=== PATIENT | female | born 1945 | race Caucasian/White ===

== ENCOUNTER 2024-01-06 16:16 | Emergency (ER) | payer MEDICARE, SELFPAY ==
[2024-01-06] VITALS (8 sets, daily range): BP systolic 131–180; BP diastolic 52–75; PULSE 62–85; RESP 15–18; TEMP 36.7–36.8; O2SAT 97–99; BMI 30.3
--- NOTE | 2024-01-06 17:24 | ECG_ITS ---
Test Reason : SOB Blood Pressure : / mmHG Vent. Rate : 067 BPM Atrial Rate : 067 BPM P-R Int : 148 ms QRS Dur : 074 ms QT Int : 386 ms P-R-T Axes : -12 037 032 degrees QTc Int : 407 ms Normal sinus rhythm Normal ECG No previous ECGs available Referred By: Generic ED Physician Electronically Signed By:EFREN GALLEGOS
[2024-01-06] MEDS: Meclizine HCl 25 MG TABLET 50 MG PO (18:11)
--- NOTE | 2024-01-06 18:17 | ED.GENADULT ---
HPI - General Adult General Chief complaint: Dizziness Stated complaint: DIZZINESS, DIARRHEA Time Seen by Provider: 01/06/24 17:38 Source: patient, family (daughter) and RN notes reviewed Mode of arrival: ambulatory Limitations: no limitations History of Present Illness ED Provider: Jay NETTLES narrative: 78-year-old female with history of hypertension, hyperlipidemia presents for evaluation of intermittent dizziness with lightheadedness for 1 week Patient reports that she went to urgent care and was referred to [facility] emergency department but left without being seen a couple days ago. She followed up with her PCP on Monday and her amlodipine was discontinued The patient reports that her symptoms persist. She denies any headaches, fevers, chills, respiratory symptoms pain Denies any chest pain, shortness of breath No other complaints or concerns at this time Patient states that when her symptoms very 1st started she describes the symptoms as ?room spinning. ? Related Data Allergies Allergy/AdvReac Type Severity Reaction Status Date / Time No Known Allergies Allergy Verified 01/06/24 16:54 Review of Systems Constitutional: Constitutional: Denies body ache(s), Reports chills, Denies fever(s), Denies frequent falls and Denies headache(s) Eyes: Eyes: Denies blurry vision ENT: Reports vertigo, Reports dizziness and Denies headache(s) Cardiovascular: Cardiovascular: Denies chest pain and Denies dyspnea Respiratory: Respiratory: Denies cough and Denies dyspnea Gastrointestinal: Gastrointestinal: Denies abdominal pain, Denies nausea and Denies vomiting Musculoskeletal: Musculoskeletal: Denies back pain Integumentary/Breasts: Skin/Breast: Denies rash Neurologic: Reports vertigo, Reports dizziness, Denies frequent falls and Denies headache(s) Psychiatric: Psychiatric: Denies anxiety PMFSH Social History Social History Smoked in Last 30 Days: No Use of substances other than those prescribed or required for medical reasons: No Advance Directives: No Advance Directives Information Provided: Yes Physical Exam ED Vital Signs: Vital Signs - 24 hr 01/06/24 16:50 01/06/24 17:16 01/06/24 17:18 Temperature 98.3 F Pulse Rate 70 68 74 Respiratory Rate 18 Blood Pressure 155/55 H 154/71 H 150/68 H Pulse Oximetry 99 Oxygen Delivery Method Room Air 01/06/24 17:20 01/06/24 18:49 01/06/24 21:12 Temperature 98.1 F Pulse Rate 85 62 84 Respiratory Rate 15 15 Blood Pressure 153/75 H 139/52 L 147/72 H Pulse Oximetry 97 99 Oxygen Delivery Method Room Air Room Air BMI result Body Mass Index 30.3 Const General: healthy appearing, comfortable, no acute distress, alert and awake Nutritional Appearance: well nourished Orientation/consciousness: patient oriented x3 HENMT Head: Yes normocephalic and Yes atraumatic Ears: TM's normal bilaterally and EAC's normal Eyes Eyelids: Yes eyelids normal Conjunctivae: conjunctivae normal Sclerae: sclerae normal Corneas: corneas normal Pupils: Equal, round and reactive pupils present EOM: EOMs intact bilaterally Neck Neck: Yes full ROM Resp Effort & Inspection: normal respiratory effort, able to speak in complete sentences, no audible wheezes and not labored Auscultation: clear to auscultation bilaterally Cardio Rate: regular rate Rhythm: regular rhythm GI Inspection: No distended Palpation (GI): Soft to palpation, not firm, nontender, no guarding and not rigid Skin General skin exam: no rashes or lesions noted and elasticity normal Neuro General: patient oriented x3 Cranial nerves: Yes CN's II-XII intact bilaterally, Yes Equal, round and reactive pupils present and Yes Bilaterally intact EOM present Cognition (Neuro): normal cognition Gait exam (Neuro): Normal gait present and not ataxic Motor exam (neuro): 5/5 motor strength present throughout Coordination: [id number] test normal Extrem Other: Moving all extremities well without any obvious deformities Course Reevaluation(s) Reevaluation #1: The patient is currently asymptomatic, she improved with fluids and meclizine. I did repeat her sodium which improved from 127 to 130. The patient is comfortable with discharge at this time, she was close PCP follow-up. She was encouraged to decreased free water intake, I advised her to drink Gatorade or other electrolyte beverage but again, cut back on free water. She is not on any diuretics. She was given return precautions Time: 22:03 Medications Administered Discontinued Medications Generic Name Dose Route Start Last Admin Trade Name Freq PRN Reason Stop Dose Admin Sodium Chloride 500 mls @ 999 mls/hr 01/06/24 19:15 01/06/24 20:23 Ns IV 01/06/24 19:45 Infused .Q31M FEMI Infusion Meclizine HCl 50 mg 01/06/24 17:56 01/06/24 18:11 Meclizine Hcl 25 Mg Tablet PO 01/06/24 17:57 50 mg ONCE ONE Administration Medical Decision Making Medical Decision Making [facility] Narrative: 78-year-old female presents for evaluation of intermittent dizziness. She has no focal neuro deficits, plan for orthostatics, EKG, basic labs. Her history is consistent with vertigo, less likely posterior stroke as her symptoms started a week ago and she has no focal neuro deficits. We will treat with meclizine in the meantime pending remainder of workup Differential Diagnosis Differential Diagnoses: The differential diagnosis associated with the presentation includes BPV Posterior stroke less likely Orthostasis Hyponatremia Dizziness Admission/Observation Consideration of admission/observation: Escalation of care including admission/observation considered Admission was consider due to hyponatremia, but the patient's sodium improved and she is asymptomatic Lab Data [facility] Lab Attestation statement: I reviewed the patient's lab results. No leukocytosis, the patient has a mild normocytic anemia. Platelet count within normal limits. Electrolytes are significant for a hyponatremia to 127 no other significant electrolyte abnormalities. Renal function within normal limits. The patient is not on any diuretics 01/06/24 18:23 01/06/24 21:34 Labs: Lab Results 01/06/24 01/06/24 01/06/24 Range/Units 18:23 18:49 21:34 WBC 8.7 (4.8-10.8) X10*3/uL RBC 3.31 L (4.20-5.50) X10*6/uL Hgb 10.4 L (12.0-16.0) g/dl Hct 29.1 L (37.0-47.0) % MCV 87.9 (80.0-98.0) fL MCH 31.4 (27.0-33.0) pg MCHC 35.7 H (31.0-35.0) g/dl RDW 12.4 (11.0-16.0) % Plt Count 277 (160-400) X10*3/uL MPV 8.2 L (9.4-12.3) fL Immature Gran % (Auto) 0.3 (0.0-0.4) % Neut % (Auto) 72.9 (45-73) % Lymph % (Auto) 18.9 L (20-40) % [place] % (Auto) 7.1 (2-11) % Eos % (Auto) 0.5 (0-4) % Baso % (Auto) 0.3 (0-2) % Lymph # (Auto) 1.7 (1.2-4.9) X10*3/uL [place] # (Auto) 0.6 (0.1-1.2) X10*3/uL Eos # (Auto) 0.0 (0.0-0.4) X10*3/uL Baso # (Auto) 0.0 (0.0-0.2) X10*3/uL Abs Immat Gran (auto) 0.03 (0.00-0.03) X10*3/uL Absolute Neuts (auto) 6.3 (2.0-8.3) x10*3/uL Absolute Nucleated RBC 0.000 (0.0-0.012) X10*3/uL Nucleated RBC % (auto) 0.0 (0.0-0.2) /100WBC PT 12.9 H (10.9-12.4) SEC INR 1.1 (0.9-1.1) Sodium 127 L 130 L (135-145) mmol/L Potassium 4.0 3.9 (3.3-5.1) mmol/L Chloride 96 99 (96-108) mmol/L Carbon Dioxide 21 L 20 L (22-29) mmol/L Anion Gap 14 15 (12-20) BUN 14 13 (9-16) mg/dL Creatinine 0.75 0.74 (0.5-1.4) mg/dL Estim Creat Clear Calc 62.0 62.8 Estimated GFR > 60 > 60 Random Glucose 96 93 (60-115) mg/dL Calcium 9.4 9.1 (8.4-10.2) mg/dL Magnesium 2.1 (1.6-2.6) mg/dL Total Bilirubin 0.3 (0.0-1.0) mg/dL AST 17 (5-31) U/L ALT 11 (0-31) U/L Alkaline Phosphatase 49 (39-117) U/L Troponin I High Sens 3.7 (<3.5-17.0) ng/L Total Protein 7.3 (6.5-8.0) g/dL Albumin 4.3 (3.5-5.0) g/dL Urine Color Yellow Urine Appearance Clear Urine pH 7.0 (5.0-9.0) Ur Specific [place] <= 1.005 (1.005-1.025) Urine Protein Negative (Neg-Trace) mg/dL Urine Glucose (UA) Negative (Negative) mg/dL Urine Ketones Negative (Negative) mg/dL Urine Blood Negative (Negative) Urine Nitrite Negative (Negative) Ur Leukocyte Esterase Negative (Negative) Urine RBC 0-2 (0-2) /HPF Urine WBC 0-5 (0-5) /HPF Ur Squamous Epith Cells 0-2 (0-2) /HPF Urine Bacteria None Seen (None Seen) Hyaline Casts 0-2 (0-2) /LPF Independent Interpretation I performed an independent interpretation of an: EKG (Rhythm with a rate of [address] segment changes) Discharge Plan Discharge Clinical Impression: Dizziness, Vertigo, Acute hyponatremia Patient Disposition: Home, Self-Care Instructions: Liquids and Hydration for Athletes (ED), Hyponatremia (ED), Vertigo (ED) Print Language: [place] Island[place]
[2024-01-06 18:31] LABS: MANUAL DIFF FLAG NO
[2024-01-06 18:34] LABS: Basophils Percent Auto 0.3 % (0-2); Eosinophils Percent Auto 0.5 % (0-4); Hematocrit 29.1 % (37.0-47.0); Hemoglobin 10.4 g/dl (12.0-16.0); Imm Gran Abs Auto 0.03 X10*3/uL (0.00-0.03); Imm Gran Pct Auto 0.3 % (0.0-0.4); Lymphocytes Absolute Auto 1.7 X10*3/uL (1.2-4.9); Lymphocytes Percent Auto 18.9 % (20-40); Mean Corpuscular HGB Conc 35.7 g/dl (31.0-35.0); Mean Corpuscular Hemoglobin 31.4 pg (27.0-33.0); Mean Corpuscular Volume 87.9 fL (80.0-98.0); Mean Platelet Volume 8.2 fL (9.4-12.3); Monocytes Absolute Auto 0.6 X10*3/uL (0.1-1.2); Monocytes Percent Auto 7.1 % (2-11); Neutrophils Absolute Auto 6.3 x10*3/uL (2.0-8.3); Neutrophils Percent Auto 72.9 % (45-73); Platelet Count 277 X10*3/uL (160-400); Red Blood Count 3.31 X10*6/uL (4.20-5.50); Red Cell Distribution Width 12.4 % (11.0-16.0); White Blood Count 8.7 X10*3/uL (4.8-10.8)
[2024-01-06 18:40] LABS: INTERNATIONAL NORM RATIO 1.1 (0.9-1.1); Prothrombin Time 12.9 SEC (10.9-12.4)
[2024-01-06 18:49] LABS: Alanine Aminotransferase 11 U/L (0-31); Albumin Level 4.3 g/dL (3.5-5.0); Alkaline Phosphatase 49 U/L (39-117); Anion Gap 14 (12-20); Aspartate Amino Transferase 17 U/L (5-31); Bilirubin Total 0.3 mg/dL (0.0-1.0); Blood Urea Nitrogen 14 mg/dL (9-16); Calcium 9.4 mg/dL (8.4-10.2); Carbon Dioxide 21 mmol/L (22-29); Chloride 96 mmol/L (96-108); Estimated Glomerular Filt Rate > 60; Glucose Random 96 mg/dL (60-115); Magnesium 2.1 mg/dL (1.6-2.6); Sodium 127 mmol/L (135-145); Total Protein 7.3 g/dL (6.5-8.0)
--- NOTE | 2024-01-06 18:55 | PC.NURSE ---
report from Phuong CALLAWAY, aaume care of pt at this time
[2024-01-06 18:56] LABS: Troponin-I High Sensitivity 3.7 ng/L (<3.5-17.0)
[2024-01-06 19:14] LABS: Appearance Urine Clear; Color Urine Yellow; Glucose Urine UA Negative (Negative); Leukocyte Esterase Urine Negative (Negative); Nitrite Urine Negative (Negative); Specific Gravity - Urine <= 1.005 (1.005-1.025); Urine Blood Negative (Negative); Urine Ketones Negative (Negative); Urine Protein Negative (Neg-Trace)
[2024-01-06 19:19] LABS: Bacteria Urine None Seen (None Seen); Hyaline Casts Urine 0-2 /LPF (0-2); RBC Urine 0-2 /HPF (0-2); Squamous Epithelial Cell Urine 0-2 /HPF (0-2); WBC Urine 0-5 /HPF (0-5)
[2024-01-06] MEDS: 0.9 % Sodium Chloride 500 ML 999 ML IV (19:47)
[2024-01-06 21:57] LABS: Anion Gap 15 (12-20); Blood Urea Nitrogen 13 mg/dL (9-16); Calcium 9.1 mg/dL (8.4-10.2); Carbon Dioxide 20 mmol/L (22-29); Chloride 99 mmol/L (96-108); Creatinine Clr Calc Pharmacy 62.8; Estimated Glomerular Filt Rate > 60; Glucose Random 93 mg/dL (60-115); Potassium 3.9 mmol/L (3.3-5.1); Sodium 130 mmol/L (135-145)
== END 2024-01-06 22:35 | disposition home or self-care (01) ==
PROVIDERS: Physician Assistant; Emergency Provider Emergency Medicine; PCP Nurse Practitioner Primary Care
DX: R42 Dizziness and giddiness (principal); E87.1 Hypo-osmolality and hyponatremia; R06.02 Shortness of breath; I10 Essential (primary) hypertension; E78.5 Hyperlipidemia, unspecified; D64.9 Anemia, unspecified
CPT/HCPCS: 36415; 80048; 80053; 81001; 83735; 84484; 85025; 85610; 93005; 96360; 99285

== ENCOUNTER → 2024-01-06 17:24 | Outpatient (BNV) | payer MEDICARE, SELFPAY | PROVIDERS: Emergency Provider Emergency Medicine; PCP Nurse Practitioner Primary Care; Visit Provider Internal Medicine | DX: R06.02 Shortness of breath (principal) | CPT/HCPCS: 93010 ==

== ENCOUNTER 2024-02-15 13:03 | Emergency (ER) | payer MEDICARE, SELFPAY ==
--- NOTE | 2024-02-15 | ECG_ITS ---
Test Reason : DIZZINESS Blood Pressure : / mmHG Vent. Rate : 064 BPM Atrial Rate : 064 BPM P-R Int : 152 ms QRS Dur : 084 ms QT Int : 420 ms P-R-T Axes : -16 014 026 degrees QTc Int : 433 ms Normal sinus rhythm Normal ECG When compared with ECG of 06-JAN-2024 17:34, No significant change was found Referred By: Generic ED Physician Electronically Signed By:EFREN GALLEGOS
--- NOTE | ~2024-02-15 | CT_ITS ---
EXAMINATION: CT HEAD WITHOUT CONTRAST CLINICAL INFORMATION: Lightheadedness. Dizziness. Evaluate for stroke. COMPARISON: None available. TECHNIQUE: Contiguous axial imaging was performed from the skull base to vertex without intravenous administration of contrast. This CT examination was performed using dose optimization techniques as appropriate, variously including the following: *Automated exposure control *Adjustment of mA and/or kV according to patient size (this includes techniques or standardized protocols for targeted exams where dose is matched to indication/reason for exam; i.e. extremities or head) *Use of iterative reconstruction technique DLP: 542 mGy-cm FINDINGS: The ventricles and sulci are enlarged consistent with diffuse atrophy. No visualized masses or midline shift are seen. There is no intra-axial or extra-axial hemorrhage. There are no fluid collections. Decreased attenuation is seen in the periventricular white matter compatible with chronic small vessel ischemic disease. The harley-white discrimination is preserved. Mucoperiosteal thickening of the left frontal and sphenoid sinuses as well as the left ethmoid air cells. Otherwise, the included paranasal sinuses and mastoid air cells are well aerated. The calvarium is intact. CT/CT head/brain wo IV con IMPRESSION: No intracranial hemorrhage or mass effect. Generalized atrophy and chronic small vessel white matter ischemic changes. Electronically signed by: Ernie Yepez MD 02/15/2024 03:32 PM HENNA
[2024-02-15 13:07] VITALS: BP 153/76; BP 158/54; PULSE 70; PULSE 86; RESP 16; TEMP 36.7; O2SAT 99; BMI 25.7
--- NOTE | 2024-02-15 13:30 | PC.NURSE ---
biba from home c/o dizziness/lightheadedness x 1 week. recently finished paxlovid yesterday - tested negative for covid this am. pt also verbalizing nausea/nonbloody diarrhea w/o relief from pepto x 1 week. denies abd pain/any episodes of vomiting. reports chills. currently afebrile. upon ED arrival - a&ox4. vss and up to date. nsr on the environmental monitoring specialist. labs obtained/sent. ekg performed by tech. pt on RA w/o difficulty. no sob/wob noted. respirations even/unlabored. lung sounds CTA. plan of care ongoing. call armstrong placed within reach.
[2024-02-15 13:32] LABS: Basophils Percent Auto 0.2 % (0-2); Eosinophils Percent Auto 0.2 % (0-4); Hematocrit 32.2 % (37.0-47.0); Hemoglobin 11.4 g/dl (12.0-16.0); Imm Gran Abs Auto 0.01 X10*3/uL (0.00-0.03); Imm Gran Pct Auto 0.2 % (0.0-0.4); Lymphocytes Absolute Auto 1.1 X10*3/uL (1.2-4.9); Lymphocytes Percent Auto 21.7 % (20-40); MANUAL DIFF FLAG NO; Mean Corpuscular HGB Conc 35.4 g/dl (31.0-35.0); Mean Corpuscular Hemoglobin 30.6 pg (27.0-33.0); Mean Corpuscular Volume 86.6 fL (80.0-98.0); Mean Platelet Volume 8.3 fL (9.4-12.3); Monocytes Absolute Auto 0.5 X10*3/uL (0.1-1.2); Monocytes Percent Auto 9.3 % (2-11); Neutrophils Absolute Auto 3.4 x10*3/uL (2.0-8.3); Neutrophils Percent Auto 68.4 % (45-73); Platelet Count 319 X10*3/uL (160-400); Red Blood Count 3.72 X10*6/uL (4.20-5.50); Red Cell Distribution Width 13.1 % (11.0-16.0); White Blood Count 4.9 X10*3/uL (4.8-10.8)
--- NOTE | 2024-02-15 13:34 | ED_ITS ---
HPI - Dizziness General Chief Complaint: Dizziness Stated Complaint: light headedness Time Seen by Provider: 02/15/24 13:32 Source: patient Mode of arrival: EMS Limitations: no limitations History of Present Illness ED Provider: Dr. Stephen Fong HPI Narrative: 78-year-old female with history of hypertension, hyperlipidemia presents for evaluation of intermittent dizziness with lightheadedness, nausea and diarrhea. Patient was seen here in the emergency department on 01/06/2024 for 1 week of dizziness. That time laboratory evaluation revealed a low sodium otherwise was unremarkable. She was treated with IV fluid and meclizine with improvement of her symptoms. She states that she did not require anymore meclizine after receiving her treatment in the emergency department. She states that over the last 2 weeks she has had return of her dizziness and lightheadedness. She states that it is constant but does not seem to change with position. She states states that a week ago she got her flu shot did not feel well. She did test positive for COVID and was started on a course of Paxlovid. She finished this yesterday. She states that over the last 2 weeks she has had 3-5 episodes of diarrhea in the morning and 1 episode of diarrhea at night. She states this diarrhea is watery with no blood in the diarrhea. She has nausea with no vomiting. She denies headache, change in her vision. She states she was having difficulty walking secondary to her lightheadedness and needs to hold on to things in order to walk. Related Data Previous Rx's ?Medication ?Instructions ?Recorded meclizine 25 mg tablet 25 mg PO DAILY PRN dizziness #1 tab 01/08/24 ondansetron 4 mg disintegrating 4 mg PO Q6-8H PRN nausea and 02/15/24 tablet vomiting #14 tabs Allergies Allergy/AdvReac Type Severity Reaction Status Date / Time No Known Allergies Allergy Verified 02/15/24 13:07 Review of Systems 2 Review of Systems: Yes all other systems are reviewed and are negative [facility] Past Medical History [facility] Narrative: Social history: She denies tobacco, alcohol and drug use Social History Social History Smoked in Last 30 Days: No Use of substances other than those prescribed or required for medical reasons: No Advance Directives: No Advance Directives Information Provided: Yes Do you have a plan to hurt others: No Plan Physical Exam 2 Vital Signs: Vital Signs: Last Vital Signs Temp 98.0 F 02/15/24 13:07 Pulse 70 02/15/24 13:07 Resp 16 02/15/24 13:07 BP 153/76 H 02/15/24 13:07 Pulse Ox 99 02/15/24 13:07 O2 Del Method Room Air 02/15/24 13:07 BMI result Body Mass Index 25.7 Vital signs revealed an elevated blood pressure of 153/76 otherwise unremarkable Exam: General: Awake, alert in no distress Head: Normocephalic, atraumatic EENT: PERRL, lateral nystagmus, Lids normal, sclera normal, conjunctiva normal, nose normal , ears normal, throat without erythema or exudates Neck: Supple, no adenopathy Lung: breath sounds symmetric, no wheezing, rales or rhonchi Chest: symmetric movement, nontender Heart: regular rate and rhythm, normal S1, S2 no murmurs or rubs Abdomen: soft, non-tender, nondistended, normal bowel sounds Back: no vertebral tenderness, no CVAT Extremities: no deformities, moves all extremities symmetrically Neuro: General: Awake, alert, oriented, normal speech Cranial nerves: Cranial nerves 2-12 are intact Strength: Able to hold all extremities up against gravity, normal symmetric strength Cerebellar: Lateral nystagmus, good [id number]-ay-xiys-to-finger, good rapid finger movement, normal heel to gonzalez. Patient was able to stand but is ataxic when she starts to walk and needs to hold on to the stretcher Psych: Pleasant, cooperative Medications Administered Discontinued Medications Generic Name Dose Route Start Last Admin Trade Name Usman PRN Reason Stop Dose Admin Sodium Chloride 1,000 mls @ 999 mls/hr 02/15/24 13:58 02/15/24 15:07 Ns IV 02/15/24 14:58 Infused .Q1H1M STA Infusion Meclizine HCl 25 mg 02/15/24 13:58 02/15/24 14:05 Meclizine Hcl 25 Mg Tablet PO 02/15/24 13:59 25 mg ONCE STA Administration Ondansetron HCl 4 mg 02/15/24 13:58 02/15/24 14:05 Ondansetron Hcl 4 Mg/2 Ml Vial IVPUSH 02/15/24 13:59 4 mg ONCE ONE Administration Medical Decision Making Medical Decision Making MDM Narrative: 78-year-old female with history of hypertension, hyperlipidemia presents for evaluation of intermittent dizziness with lightheadedness, nausea and diarrhea. Patient was seen here in the emergency department on 01/06/2024 for 1 week of dizziness. She states that she felt fine for 1 week but then the dizziness returned and over the last 2 weeks she has had constant lightheadedness and dizziness, worse with standing and when she walks she needs to hold onto the perez. She was also had diarrhea for 2 weeks. Patient was diagnosed with COVID proximally 1 week prior and completed a 5 day course of Paxlovid yesterday. She denied headache, vision change but she did have nausea. Vital signs did reveal elevated blood pressure otherwise unremarkable. Neurologic exam did reveal lateral nystagmus, patient is able to stand but is off balance with walking and needs to hold onto the stretcher in order to take several steps. Differential diagnosis: ?Includes but is not limited to positional vertigo, cerebellar stroke, electrolyte abnormalities, anemia, volume depletion, dehydration Following evaluation was ordered: CBC, CMP, troponin, lipase, magnesium, COVID- 19, influenza, RSV, CT scan of the brain Patient was initially treated with the following: Normal saline IV x1 L, meclizine 25 mg orally and Zofran 4 mg IV Course: 14:46 My independent interpretation patient's laboratory evaluation is as follows: WBCs normal 4900. Normocytic anemia with an H&H of 14.4 and 32.2, MCV was 86.6. Sodium low 129, chloride low 93, bicarb low 21. COVID-19, influenza and RSV were negative. CT scan of the brain without IV contrast did not reveal any acute abnormalities which is reassuring. The patient was able to get up and walk up and down the ED hallway without any assistance. At this time, I do not think that the patient has had a cerebellar stroke and I did discuss this with her. I think that her symptoms are caused by positional vertigo and volume depletion dehydration from her diarrhea. She was given Imodium 2 mg orally. She was advised to take Imodium 2 mg twice a day for the next 2-3 days for her diarrhea. She was also given a prescription for Zofran 4 mg ODT every 6 hours as needed for nausea and vomiting. She was advised to take meclizine 25 mg 3 times a day as needed for dizziness. She was given printed and verbal instructions and discharged home. Admission/Observation Consideration of admission/observation: Escalation of care including admission/observation considered (Yes) Lab Data MDM Lab Attestation statement: I reviewed the patient's lab results. 02/15/24 13:21 02/15/24 13:21 Labs: Lab Results 02/15/24 02/15/24 Range/Units 13:21 13:22 WBC 4.9 (4.8-10.8) X10*3/uL RBC 3.72 L (4.20-5.50) X10*6/uL Hgb 11.4 L (12.0-16.0) g/dl Hct 32.2 L (37.0-47.0) % MCV 86.6 (80.0-98.0) fL MCH 30.6 (27.0-33.0) pg MCHC 35.4 H (31.0-35.0) g/dl RDW 13.1 (11.0-16.0) % Plt Count 319 (160-400) X10*3/uL MPV 8.3 L (9.4-12.3) fL Immature Gran % (Auto) 0.2 (0.0-0.4) % Neut % (Auto) 68.4 (45-73) % Lymph % (Auto) 21.7 (20-40) % [place] % (Auto) 9.3 (2-11) % Eos % (Auto) 0.2 (0-4) % Baso % (Auto) 0.2 (0-2) % Lymph # (Auto) 1.1 L (1.2-4.9) X10*3/uL [place] # (Auto) 0.5 (0.1-1.2) X10*3/uL Eos # (Auto) 0.0 (0.0-0.4) X10*3/uL Baso # (Auto) 0.0 (0.0-0.2) X10*3/uL Abs Immat Gran (auto) 0.01 (0.00-0.03) X10*3/uL Absolute Neuts (auto) 3.4 (2.0-8.3) x10*3/uL Absolute Nucleated RBC 0.000 (0.0-0.012) X10*3/uL Nucleated RBC % (auto) 0.0 (0.0-0.2) /100WBC Sodium 129 L (135-145) mmol/L Potassium 3.3 (3.3-5.1) mmol/L Chloride 93 L (96-108) mmol/L Carbon Dioxide 21 L (22-29) mmol/L Anion Gap 18 (12-20) BUN 11 (9-16) mg/dL Creatinine 1.06 (0.5-1.4) mg/dL Estim Creat Clear Calc 40.5 Estimated GFR 50 Random Glucose 94 (60-115) mg/dL Calcium 9.4 (8.4-10.2) mg/dL Magnesium 1.7 (1.6-2.6) mg/dL Total Bilirubin 0.4 (0.0-1.0) mg/dL AST 67 H (5-31) U/L ALT 65 H (0-31) U/L Alkaline Phosphatase 57 (39-117) U/L Troponin I High Sens 4.7 (<3.5-17.0) ng/L Total Protein 7.8 (6.5-8.0) g/dL Albumin 4.4 (3.5-5.0) g/dL Lipase 53 (8-78) U/L Influenza Type A (PCR) NEGATIVE (Negative) Influenza Type B (PCR) NEGATIVE (Negative) RSV RNA Qual (PCR) NEGATIVE (Negative) SARS-CoV-2 RNA (RT-PCR) NEGATIVE (Negative) Independent Interpretation I performed an independent interpretation of an: EKG Interpretation: My independent interpretation the patient's 12 EKG done at 13:25 hours is as follows: Normal sinus rhythm with a rate of 64, normal [place] interval, QRS duration QTC interval, no ST segment elevation, no ST segment depression, no significant T-wave abnormalities, no PACs, no PVCs, this is a normal EKG Radiology Impression Discussion of test interpretation with radiology: I have reviewed the radiologist's reading. Radiologist Impression: CT head/brain wo IV con IMPRESSION: No intracranial hemorrhage or mass effect. Generalized atrophy and chronic small vessel white matter ischemic changes. Electronically signed by: Ernie Yepez MD 02/15/2024 03:32 PM Prescription Management I considered prescription management with: Other (Antiemetic-Zofran) Chronic Conditions Patient?s care impacted by: Diabetes and Hypertension Discharge Plan Discharge Clinical Impression: Vertigo, Diarrhea, Acute dehydration, Nausea Patient Disposition: Home, Self-Care Additional Instructions: Your blood work was unremarkable. The CT scan of your head did not reveal any significant abnormalities which is reassuring. At this time I do not think that you had a cerebellar stroke since your able to walk in the emergency department without any assistance. I believe that your dizziness is due to positional vertigo caused by your balance mechanism in your inner ears. Positional vertigo can sometimes last weeks. Take meclizine 25 mg pills, 1 pill 3 times a day for the next 2 days for dizziness then as needed for dizziness. ?This medication will make you sleepy. ?Do not drive or work while taking this medication. Take Imodium 2 mg pills, 1 pill every 12 hours for 2-3 days. You can stop this medication once the diarrhea stops. Take Zofran ODT 4 mg pills, 1 pill dissolved in your mouth every 8 hours as needed for nausea and vomiting. Follow-up with your doctor in 2 days. Please return to the emergency department if your symptoms get worse or if you develop any symptoms that are concerning to you. Prescriptions: New ondansetron 4 mg tablet,disintegrating 4 mg PO Q6-8H PRN (Reason: nausea and vomiting) Qty: 14 0RF No Action meclizine 25 mg tablet 25 mg PO DAILY PRN (Reason: dizziness) Qty: 1 0RF Print Language: [place]
[2024-02-15 13:46] LABS: Alanine Aminotransferase 65 U/L (0-31); Albumin Level 4.4 g/dL (3.5-5.0); Alkaline Phosphatase 57 U/L (39-117); Anion Gap 18 (12-20); Aspartate Amino Transferase 67 U/L (5-31); Bilirubin Total 0.4 mg/dL (0.0-1.0); Blood Urea Nitrogen 11 mg/dL (9-16); Calcium 9.4 mg/dL (8.4-10.2); Carbon Dioxide 21 mmol/L (22-29); Chloride 93 mmol/L (96-108); Creatinine Clr Calc Pharmacy 40.5; Estimated Glomerular Filt Rate 50; Glucose Random 94 mg/dL (60-115); Lipase 53 U/L (8-78); Magnesium 1.7 mg/dL (1.6-2.6); Potassium 3.3 mmol/L (3.3-5.1); Sodium 129 mmol/L (135-145); Total Protein 7.8 g/dL (6.5-8.0)
[2024-02-15 13:51] LABS: Troponin-I High Sensitivity 4.7 ng/L (<3.5-17.0)
[2024-02-15] MEDS: ondansetron HCL 4 MG/2 ML VIAL IVPUSH (14:05)
[2024-02-15] MEDS: Meclizine HCl 25 MG TABLET PO (14:05)
[2024-02-15] MEDS: 0.9 % Sodium Chloride 1,000 ML 999 ML IV (14:05)
--- NOTE | 2024-02-15 14:05 | PC.NURSE ---
20gIV placed in the left forearm - IVF/medication administered per provider order. pt waiting to go to CT at this time.
--- NOTE | 2024-02-15 14:50 | PC.NURSE ---
pt to CT at this time.
[2024-02-15 15:13] LABS: Influenza A PCR NEGATIVE (Negative); Influenza B PCR NEGATIVE (Negative); Resp Syncy Virus RNA Qual PCR NEGATIVE (Negative); SARS COV2 PCR INHOUSE NEGATIVE (Negative)
[2024-02-15 15:57] VITALS: BP 130/54; PULSE 65; RESP 20; TEMP 36.7; O2SAT 99
[2024-02-15 15:59] VITALS: BP 132/58; PULSE 73
[2024-02-15 16:00] VITALS: BP 119/62; PULSE 88
--- NOTE | 2024-02-15 16:05 | PC.NURSE ---
orthostatic vital signs performed by tech and displayed as negative. pt reports sx subsided post medication administration.
[2024-02-15 16:10] VITALS: BP 123/57; PULSE 63; RESP 16; TEMP 36.5; O2SAT 98
[2024-02-15] MEDS: Loperamide HCl 2 MG CAPSULE PO (16:10)
[2024-02-15 16:12] VITALS: BP 123/57; PULSE 63; RESP 16; TEMP 36.5; O2SAT 98
== END 2024-02-15 16:16 | disposition home or self-care (01) ==
PROVIDERS: Emergency Provider Emergency Medicine Emergency Medical Services; PCP Nurse Practitioner Primary Care
DX: R42 Dizziness and giddiness (principal); R19.7 Diarrhea, unspecified; R11.0 Nausea; R26.0 Ataxic gait; Z03.818 Encounter for observation for suspected exposure to other biological agents ruled out; I10 Essential (primary) hypertension; E78.5 Hyperlipidemia, unspecified
CPT/HCPCS: 0241U; 70450; 80053; 83690; 83735; 84484; 85025; 93005; 96361; 96374; 99284; 99285; J2405

== ENCOUNTER → 2024-02-15 13:25 | Outpatient (BNV) | payer MEDICARE, SELFPAY | PROVIDERS: Emergency Provider Emergency Medicine Emergency Medical Services; PCP Nurse Practitioner Primary Care; Visit Provider Internal Medicine | DX: R42 Dizziness and giddiness (principal) | CPT/HCPCS: 93010 ==